=== PATIENT | female | born 1970 | race Hispanic/Latino ===

== ENCOUNTER 2018-04-28 17:55 | Emergency (ER) | payer OTHER ==
[~2018-04-28] VITALS: Ht 157.5 cm; Wt 59.0 kg
--- OUTSIDE RECORDS SUMMARY | 2018-04-28 17:57 | XMS REPORT ---
Author Author [facility] Address Unknown Phone Unavailable Care Team Providers Care Industrial Waste Inspector Name Role Phone Unavailable Unavailable Problems This patient has no known problems. Allergies, Adverse Reactions, Alerts This patient has no known allergies or adverse reactions. Medications This patient has no known medications.
--- OUTSIDE RECORDS SUMMARY | 2018-04-28 17:57 | XMS REPORT | Summary of Care ---
Author Author SARAHY BOWERS M.D. Unknown Address Unknown Phone Unavailable Care Team Providers Care Family Mediator Name Role Phone SARAHY BOWERS M.D. 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: Active Urinary urgency (788.63, R39.15) Status: Active Chronic fatigue (780.79, R53.82) Status: Active Medications Name Dates Details TiZANidine HCl - 4 MG Oral Tablet * Start : 12-Aug-2017 Active Omeprazole 40 MG Oral Capsule Delayed Release * Refills: 0 * Start : 12-Aug-2017 Active Allergies and Adverse Reactions Name Dates Details No Known Drug Allergies (Allergy) Status: Active Procedures Procedure Dates Details Ssep's (Bilateral UE and LE) Date: 12-Aug-2017 Immunization Name Dates Details Immunizations not documented Social History Name Dates Details Unknown if ever smoked Vital Signs Date Test Result Details [id number] BP Systolic 131 mm[Hg] Status: BP Diastolic 79 mm[Hg] Status: Height 62 in Status: Weight 136 lb Status: Body Mass Index Calculated 24.88 kg/m2 Status: Body Surface Area Calculated 1.62 m2 Status: Heart Rate 84 /min Status: Results Date Description Value Details Results not documented Plan of Care Name Dates Details Planned Observations Planned Goals not documented Planned Encounters Appointment; SARAHY BOWERS M.D. On: 02-Sep-2017 16:00 Interventions Provided Labs/Procedures/Imaging* Ssep's (Bilateral UE and LE); To Be Done: 12 Aug 2017 Plan* 1. SSEP to evaluate for evidence of demyelination * 2. f/u after SSEP complete * 3. encouraged patient to start yoga Instructions Name Dates Details Instructions not documented Encounters Appointment; SARAHY BOWERS M.D. Encounter Diagnosis: Problem not documented On: 12-Aug-2017 10:00
[2018-04-28] MEDS ORDERED: ONDANSETRON HCL 4 MG ORAL DISINTEGRATING TAB PO ONE (18:30)
[2018-04-28] MEDS ORDERED: TRAMADOL HCL 50 MG TAB PO ONE (18:30)
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
[2018-04-28 20:37] VITALS: BP 156/82
== END 2018-04-28 20:44 | disposition home or self-care (01) ==
LOC: FSED 17:55
DX: S16.1XXA Strain of muscle, fascia and tendon at neck level, initial encounter (principal); M79.622 Pain in left upper arm; M25.512 Pain in left shoulder; M25.552 Pain in left hip; M79.652 Pain in left thigh; R51 Headache; V43.52XA Car driver injured in collision with other type car in traffic accident, initial encounter; Y92.410 Unspecified street and highway as the place of occurrence of the external cause; M47.22 Other spondylosis with radiculopathy, cervical region; G89.29 Other chronic pain; I10 Essential (primary) hypertension; G43.909 Migraine, unspecified, not intractable, without status migrainosus
CPT/HCPCS: 70450; 72100; 72125; 72170; 99283; Q0162

== ENCOUNTER 2018-08-16 08:50 | Emergency (ER) | payer OTHER ==
[~2018-08-16] VITALS: Ht 157.5 cm; Wt 59.0 kg
--- OUTSIDE RECORDS SUMMARY | 2018-08-16 08:53 | XMS REPORT | Clinical Summary ---
Author Author [facility] Address Unknown Phone Unavailable Care Team Providers Care Beader Name Role Phone Asked, No Pcp PCP Unavailable Allergies Comments Active Allergy Reactions Severity Noted Date Aspirin 06/19/2018 Sulfamethoxazole-Trimetho 06/19/2018 prim Butalbital-Acetaminophen- 06/19/2018 Caff Medications Not on file Active Problems Not on file Encounters Care Team Description Date Type Specialty Jason Macario, ASHLEY Dunn, Tramaine Mcmahon, Chronic nonintractable headache, unspecified headache type (Primary Dx); Weakness 06/19/2018 Emergency Emergency Medicine after 08/15/2017 Social History Date Tobacco Use Types Packs/Day Years Used Never Assessed Sex Assigned at Date Recorded Not on file Industry Job Start Date Occupation Not on file Not on file Not on file Travel End Travel History Travel Start No recent travel history available. Last Filed Vital Signs Time Taken Vital Sign Reading 06/19/2018 7:48 PM [employer] Blood Pressure 143/70 06/19/2018 7:48 PM [employer] Pulse 85 06/19/2018 7:48 PM [employer] Temperature 36.9 C (98.4 F) 06/19/2018 7:48 PM [employer] Respiratory Rate 20 06/19/2018 7:48 PM [employer] Oxygen Saturation 100% - Inhaled Oxygen - Concentration 06/19/2018 7:49 PM [employer] Weight 59 kg (130 lb) 06/19/2018 7:49 PM [employer] Height 157.5 cm (5' 2") 06/19/2018 7:49 PM [employer] Body Mass Index 23.78 Plan of Treatment Not on file Results Not on fileafter 08/15/2017 Insurance Payer Benefit Subscriber ID Type Phone Address Plan / Group xxxxxxxxx [facility] Advance Directives Patient has advance care planning documents on file. For more information, billy santiago contact: Lucho Kan [address] [place] [address]
[2018-08-16] MEDS ORDERED: KETOROLAC TROMETHAMINE 30 MG/ML VIAL IV STA (09:05)
--- NOTE | 2018-08-16 09:13 | NUR ---
ALL CONCERNS AND QUESTIONS REGARDING PT THROAT AND MEDICATIONS ANSWERED BY STAFF AND DR @ BEDSIDE. PT AGREED TO CARE AND IVF RUNNING WIDE OPEN.
[2018-08-16] MEDS ORDERED: METOCLOPRAMIDE HCL 10 MG/2ML VIAL IV ONE (09:15)
[2018-08-16] MEDS ORDERED: DIPHENHYDRAMINE HCL INJ 50 MG/ML VIAL IV ONE (09:15)
[2018-08-16] MEDS ORDERED: SODIUM CHLORIDE 0.9% 1000ML 1,000 ML IV SCH (09:15)
--- NOTE | 2018-08-16 09:42 | NUR ---
MALE AT BEDSIDE WITH PT ARGUEMENTATIVE. ALL QUESTIONS ANSWERED AND PT GIVEN MULTIPLE WARM BLANKETS. PT HAS NOW PUT ON SUNGLASSES. LIGHTS OFF FOR PT COMFORT.
== END 2018-08-16 10:07 | disposition home or self-care (01) ==
LOC: FSED 08:50
DX: G43.009 Migraine without aura, not intractable, without status migrainosus (principal); M54.9 Dorsalgia, unspecified; G89.29 Other chronic pain
CPT/HCPCS: 99282; J1200; J1885; J2765